=== PATIENT | female | born 1985 | race Caucasian/White ===

== ENCOUNTER 2022-09-27 12:36 | Day surgery (SDC) | payer OTHER ==
[2022-09-27] MEDS ORDERED: FERRIC CARBOXYMALTOSE 750 MG in SODIUM CHLORIDE 250 ML IVPB ONE (13:30)
[2022-09-27 16:56] VITALS: BP 105/60; PULSE 74; RESP 18; TEMP 98.2
== END 2022-09-27 14:21 | disposition home or self-care (01) ==
LOC: FINFUSION 12:36 → FM/S 12:37 → FINFUSION 14:21
PROVIDERS: ATTEND Family Medicine
PROC: 3E033GC Introduction of Other Therapeutic Substance into Peripheral Vein, Percutaneous Approach (ICD-10-PCS; principal; 2022-09-27)
DX: D50.9 Iron deficiency anemia, unspecified (principal)
CPT/HCPCS: 96365; J1439

== ENCOUNTER 2022-10-04 13:50 | Day surgery (SDC) | payer OTHER ==
[2022-10-04] MEDS ORDERED: FERRIC CARBOXYMALTOSE 750 MG in SODIUM CHLORIDE 250 ML IVPB ONE (15:00)
[2022-10-04 19:23] VITALS: BP 100/65; PULSE 60; RESP 18; TEMP 98.5
== END 2022-10-04 16:00 | disposition home or self-care (01) ==
LOC: FM/S 13:50 → FINFUSION 13:50
PROVIDERS: ATTEND Family Medicine
PROC: 3E033GC Introduction of Other Therapeutic Substance into Peripheral Vein, Percutaneous Approach (ICD-10-PCS; principal; 2022-10-04)
DX: D50.9 Iron deficiency anemia, unspecified (principal)
CPT/HCPCS: 96365; J1439